=== PATIENT | male | born 2000 | race Two or more races ===

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

== ENCOUNTER 2022-06-22 10:12 | Emergency (ER) | payer MEDICAID ==
[~2022-06-22] VITALS: Ht 175.3 cm; Wt 78.8 kg
[2022-06-22 11:52] VITALS: BP 135/77
[2022-06-22] MEDS ORDERED: BACL10TA PO (13:10)
[2022-06-22] MEDS ORDERED: IBUP600T27 PO (13:10)
== END 2022-06-22 13:18 | disposition home or self-care (01) ==
LOC: ER 10:12
DX: S16.1XXA Strain of muscle, fascia and tendon at neck level, initial encounter (principal); V43.52XA Car driver injured in collision with other type car in traffic accident, initial encounter; Y93.89 Activity, other specified; Y92.89 Other specified places as the place of occurrence of the external cause; Y99.8 Other external cause status
CPT/HCPCS: 72040

== ENCOUNTER 2022-07-28 08:40 | Emergency (ER) | payer MEDICAID ==
[~2022-07-28] VITALS: Ht 177.8 cm; Wt 78.2 kg
[~2022-07-28 08:40] MED LIST changes: +BACL10TA PO; -HYDROmorphone HCL 2 MG/ML VL IV PRN; +IBUP600T27 PO; -KETOROLAC TROMETH 30 MG/ML 1ML VIAL ONE; -LIDOCAINE 1% HCL (LOCAL ANESTH.) INJ 20ML MDV ONE; -LIDOCAINE HCL 2% TOP JELLY 5ML TOP ONE; -METOCLOPRAMIDE HCL 5MG/ml INJ 2ml VIAL ONE; -MIDAZOLAM HCL 1MG/1ML-2 ML VIAL ONE; -NALOXONE HCL 0.4 MG/ML VIAL IV PRN; -ONDANSETRON HCL 4 MG/2 ML VIAL IV PRN; -PROPOFOL 10 MG/ML 20 ML IV ONE; -ROPIVACAINE 0.5% (5MG/ML) 20ML AMPULE IJ ONE; -SUCCINYLCHOLINE CHLORIDE 20 MG/ML 10ML VIAL IV ONE; -ceFAZolin 1GM/50ML 50 ML IV ONE; -fentaNYL CITRATE 100 MCG/2 ML VL ONE
[2022-07-28 10:07] VITALS: BP 107/50
[2022-07-28] MEDS ORDERED: IBUP600T28 PO (12:25)
[2022-07-28] MEDS ORDERED: IBUPROFEN 600 MG TAB PO ONE (12:30)
== END 2022-07-28 12:28 | disposition home or self-care (01) ==
LOC: ER 08:40
DX: S46.912A Strain of unspecified muscle, fascia and tendon at shoulder and upper arm level, left arm, initial encounter (principal); W22.8XXA Striking against or struck by other objects, initial encounter; Y93.89 Activity, other specified; Y92.89 Other specified places as the place of occurrence of the external cause; Y99.8 Other external cause status
CPT/HCPCS: 73030